=== PATIENT | female | born 1945 | race Caucasian/White ===

== ENCOUNTER 2021-01-03 16:37 | Emergency (ER) | payer MEDICARE ==
[2021-01-03] MEDS ORDERED: CORTISONE28 G2 TP (17:21)
== END 2021-01-03 17:33 | disposition home or self-care (01) ==
LOC: ER1 16:37
DX: R21 Rash and other nonspecific skin eruption (principal); I48.91 Unspecified atrial fibrillation; Z88.8 Allergy status to other drugs, medicaments and biological substances; Z88.1 Allergy status to other antibiotic agents
CPT/HCPCS: 99282

== ENCOUNTER 2021-08-06 15:58 | Emergency (ER) | payer MEDICARE ==
[~2021-08-06 15:58] MED LIST: CORTISONE28 G2 TP
[2021-08-06 17:27] LABS: HEMOGLOBIN 12.3 gm/dl (12.3-15.3); RED BLOOD COUNT 4.85 M/UL (4.00-5.10); WHITE BLOOD COUNT 7.3 K/UL (4.5-11.0)
[2021-08-06 17:49] LABS: BUN/CREATININE RATIO 25 (0-10)
== END 2021-08-06 22:00 | disposition home or self-care (01) ==
LOC: ER1 15:58
PROVIDERS: Student in an Organized Health Care Education/Training Program
DX: R07.89 Other chest pain (principal); I48.91 Unspecified atrial fibrillation; K21.9 Gastro-esophageal reflux disease without esophagitis; Z95.0 Presence of cardiac pacemaker
CPT/HCPCS: 71045; 80053; 82550; 82553; 83874; 84484; 85025; 93005; 99285

== ENCOUNTER 2021-10-10 23:07 | Emergency (ER) | payer MEDICARE ==
[2021-10-10 23:46] LABS: HEMOGLOBIN 11.7 gm/dl (12.3-15.3); RED BLOOD COUNT 4.56 M/UL (4.00-5.10); WHITE BLOOD COUNT 6.5 K/UL (4.5-11.0)
[2021-10-11 00:14] LABS: BUN/CREATININE RATIO 19 (0-10)
== END 2021-10-11 03:42 | disposition home or self-care (01) ==
LOC: ER1 23:07
PROVIDERS: Student in an Organized Health Care Education/Training Program
DX: R07.9 Chest pain, unspecified (principal); I48.91 Unspecified atrial fibrillation; I10 Essential (primary) hypertension; Z95.0 Presence of cardiac pacemaker; Z79.01 Long term (current) use of anticoagulants
CPT/HCPCS: 71045; 80053; 82550; 82553; 83874; 84484; 85025; 93005; 99285

== ENCOUNTER → 2021-11-27 | Outpatient (CLI) | payer MEDICARE | LOC: CT 10:10 | DX: R05.9 Cough, unspecified (principal); R06.02 Shortness of breath; J43.9 Emphysema, unspecified; R91.1 Solitary pulmonary nodule | CPT/HCPCS: 36415; 71260; 82565; Q9967 ==